=== PATIENT | female | born 1975 | race Caucasian/White ===

== ENCOUNTER 2016-07-15 11:14 | Emergency (ER) | payer OTHER ==
[~2016-07-15] VITALS: Ht 165.1 cm; Wt 72.8 kg
[~2016-07-15 11:14] MED LIST: AMOXICILLIN500 MG PO; BUSPIRONE HCL10 MG PO; IBUPROFEN800 MG PO; MOBIC15 MG PO; MOTRIN600 MG PO; NOHOMEMEDS; PERCOCET 5/31 TABLET PO; PRISTIQ50 MG PO; VALTREX1000 MG PO; VESICARE5 MG PO; XANAX0.5 MG PO
[2016-07-15] MEDS ORDERED: MOTRIN600 MG PO (16:23)
[2016-07-15] MEDS ORDERED: FLEXERIL5 MG PO (16:23)
[2016-07-15 17:04] VITALS: BP 135/80
== END 2016-07-15 17:12 | disposition home or self-care (01) ==
LOC: EME 11:14
DX: S39.012A Strain of muscle, fascia and tendon of lower back, initial encounter (principal); V40.1XXA Car passenger injured in collision with pedestrian or animal in nontraffic accident, initial encounter
CPT/HCPCS: 72110; 99281; 99284

== ENCOUNTER 2017-02-13 15:50 | Emergency (ER) | payer OTHER ==
[~2017-02-13] VITALS: Ht 165.1 cm; Wt 72.1 kg
[~2017-02-13 15:50] MED LIST changes: +FLEXERIL5 MG PO
[2017-02-13 16:23] VITALS: BP 139/86
[2017-02-13] MEDS ORDERED: INDOCIN50 MG PO (16:31)
[2017-02-13] MEDS ORDERED: NORCO 7.5/321 TABLET PO (16:31)
[2017-02-13] MEDS ORDERED: PREDNISONE20 MG PO (16:31)
[2017-02-13] MEDS ORDERED: LIDOCAINE20 MG/1 M5 PO (16:31)
== END 2017-02-13 16:53 | disposition home or self-care (01) ==
LOC: EME 15:50
DX: K04.7 Periapical abscess without sinus (principal); K02.9 Dental caries, unspecified; K03.81 Cracked tooth; F17.200 Nicotine dependence, unspecified, uncomplicated
CPT/HCPCS: 99281; 99283; J7512

== ENCOUNTER 2017-03-28 21:14 | Emergency (ER) | payer BC ==
[~2017-03-28] VITALS: Ht 165.1 cm; Wt 72.2 kg
[~2017-03-28 21:14] MED LIST changes: +INDOCIN50 MG PO; +LIDOCAINE20 MG/1 M5 PO; +NORCO 7.5/321 TABLET PO; +PREDNISONE20 MG PO
[2017-03-28 22:13] LABS: ADD MIUA? YES; BILIRUBIN NEGATIVE; BLOOD SMALL; COLOR YELLOW ((YELLOW)); GLUCOSE (STRIP) NEGATIVE; KETONES NEGATIVE; LEUKOCYTES TRACE; NITRITE NEGATIVE; PROTEIN (STRIP) NEGATIVE; SPECIFIC GRAVITY 1.018 (1.000-1.030); UROBILINOGEN 0.2 MG/DL (0.2-1.0)
[2017-03-28 22:15] LABS: BACTERIA NONE SEEN /HPF; EPITHELIAL CELLS RARE /HPF; HYALINE CASTS 0-5 /LPF; MUCUS TRACE /LPF; UCUL ADDED? NO; WHITE BLOOD CELLS 0-5 /HPF (0-5)
[2017-03-28 22:27] LABS: HEMATOCRIT 37.8 % (36.0-46.0); MCH 29.9 PG (29.0-34.0); MCHC 32.5 G/DL (30.0-36.0); MCV 91.7 FL (83-99); MEAN PLAT.VOLUME 9.8 uM^3 (9.5-12.4); PLATELET COUNT 251 K/uL (156-360); RBC DIS.WIDTH-CV 13.2 % (11.8-14.6); RED BLOOD COUNT 4.12 M/uL (3.80-5.20); WHITE BLOOD COUNT 8.5 K/uL (4.1-10.2)
[2017-03-28 22:40] LABS: CHLORIDE 105 mEq/L (99-109); POTASSIUM 3.5 mEq/L (3.7-5.4); SODIUM 141 mEq/L (136-147)
[2017-03-28 22:42] LABS: GLUCOSE 101 mg/dL (70-99)
[2017-03-28 22:43] LABS: ANION GAP 11 MEQ/L (2-14)
[2017-03-28 22:44] LABS: TOTAL BILIRUBIN 0.2 mg/dL (0.0-1.0)
[2017-03-28 22:45] LABS: ALKALINE PHOSPHATASE 75 IU/L (3-129)
[2017-03-28 22:46] LABS: GFR ESTIMATE (CALCULATED) > 59 mL/min/
[2017-03-28 22:47] LABS: UREA NITROGEN (BUN) 17 mg/dL (9-23)
[2017-03-28 22:54] LABS: QUANTITATIVE HCG < 4.0 MIU/ML
[2017-03-29 00:52] VITALS: BP 130/89
== END 2017-03-29 00:53 | disposition home or self-care (01) ==
LOC: EME 21:14
PROVIDERS: Physician Assistant
DX: R10.30 Lower abdominal pain, unspecified (principal); K59.00 Constipation, unspecified; M54.5 Low back pain; R31.9 Hematuria, unspecified; Z90.710 Acquired absence of both cervix and uterus; Z87.442 Personal history of urinary calculi; F17.200 Nicotine dependence, unspecified, uncomplicated
CPT/HCPCS: 74176; 80053; 81003; 84702; 85027; 99281; 99284

== ENCOUNTER 2017-07-31 19:37 | Emergency (ER) | payer BC ==
[~2017-07-31] VITALS: Ht 165.1 cm; Wt 72.1 kg
[2017-07-31 20:30] LABS: HEMATOCRIT 36.2 % (36.0-46.0); HEMOGLOBIN 12.1 G/DL (11.9-15.5); MCHC 33.4 G/DL (30.0-36.0); MCV 89.6 FL (83-99); PLATELET COUNT 280 K/uL (156-360); RBC DIS.WIDTH-CV 13.1 % (11.8-14.6); RBC DIS.WIDTH-SD 42.8 % (39-53); RED BLOOD COUNT 4.04 M/uL (3.80-5.20); WHITE BLOOD COUNT 7.6 K/uL (4.1-10.2)
[2017-07-31 20:40] LABS: CHLORIDE 107 mEq/L (99-109); POTASSIUM 3.6 mEq/L (3.7-5.4); SODIUM 139 mEq/L (136-147)
[2017-07-31 20:41] LABS: GLUCOSE 94 mg/dL (70-99)
[2017-07-31 20:45] LABS: CREATININE 0.8 mg/dL (0.6-1.3); GFR ESTIMATE (CALCULATED) > 59 mL/min/
[2017-07-31 20:46] LABS: UREA NITROGEN (BUN) 19 mg/dL (9-23)
[2017-07-31 20:51] LABS: TROP-I INTERPRETATION NEGATIVE; TROPONIN-I < 0.01 ng/mL (0.0-0.30)
[2017-07-31 22:54] VITALS: BP 126/84
== END 2017-07-31 22:56 | disposition home or self-care (01) ==
LOC: EME 19:37
DX: R07.89 Other chest pain (principal); F41.9 Anxiety disorder, unspecified; F17.200 Nicotine dependence, unspecified, uncomplicated; Z92.21 Personal history of antineoplastic chemotherapy; Z85.9 Personal history of malignant neoplasm, unspecified; Z87.442 Personal history of urinary calculi; Z90.710 Acquired absence of both cervix and uterus; Z88.7 Allergy status to serum and vaccine; Z91.040 Latex allergy status; Z91.041 Radiographic dye allergy status; Z91.030 Bee allergy status
CPT/HCPCS: 71046; 80048; 84484; 85027; 93005; 99281; 99284